=== PATIENT | female | born 1990 | race Caucasian/White ===

== ENCOUNTER 2017-07-09 20:37 | Outpatient (CLI) | payer OTHER | END 2017-07-09 20:38 | disposition critical access hospital (66) | LOC: EMS 20:37 | PROVIDERS: ATTEND Surgery | DX: S99.922A Unspecified injury of left foot, initial encounter (principal); Y93.75 Activity, martial arts | CPT/HCPCS: A0425; A0427 ==

== ENCOUNTER 2017-07-09 20:56 | Emergency (ER) | payer OTHER ==
[2017-07-09] MEDS ORDERED: ONDANSETRON ODT 4 MG TABLET TL STA (21:01)
[2017-07-09] MEDS ORDERED: LIDOCAINE 1% 2 ML VIAL SUBQ STA (21:02)
[2017-07-09] MEDS ORDERED: BUPIVACAINE 0.5% PF 30 ML VIAL SUBQ STA (21:02)
--- NOTE | 2017-07-09 21:03 | ED Physician Documentation ---
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 given fentanyl by medics en route with relief of pain Review of Systems Musculoskeletal: reports: Extremity pain (left fourth toe) Neurologic: denies: Focal weakness, Numbness PD PAST MEDICAL HISTORY - Past Medical History Past Medical History: No - Allergies Allergies/Adverse Reactions: Allergies Allergy/AdvReac Type Severity Reaction Status Date / Time Penicillins Allergy Anaphylaxis Verified 07/09/17 21:08 - Living Situation Living Arrangement: reports: At home PD ED PE NORMAL - Vitals Vital signs reviewed: Yes - General General: Alert and oriented X 3, No acute distress, Well developed/nourished - Neuro Neuro: No sensory deficit PD ED PE EXPANDED - Extremities Extremities: Deformity (left fourth toe), Tenderness. No: Abrasion, Laceration Results - Vitals Vitals: Vital Signs - 24 hr 07/09/17 21:05 Temperature 36.7 C Heart Rate 93 Respiratory 16 Rate Blood Pressure 135/88 H O2 Saturation 100 Oxygen O2 Source Room air - Rads (name of study) left toes xrays Radiology: Prelim report reviewed, See rad report Procedures - Regional nerve block Nerve block site: Digital - note digit(s) (left fourth toe) Right / left: Left Nerve block anesthesia: Lidocaine 1%, Marcaine 0.5% Nerve block aftercare: Excellent anesthesia, Patient tolerated well, No complications PD MEDICAL DECISION MAKING - ED course Complexity details: reviewed results, re-evaluated patient, considered differential, d/w patient ED course: subsequent to return from xray, patient experienced gradually worsening pain; this was relieved with digital block. With gentle traction, the toe was then reduced quite easily. Excellent alignment and brisk capillary refill in tip of toe. Departure - Departure Disposition: 01 Home, Self Care Clinical Impression: Toe joint dislocation Qualifiers: Encounter type: initial encounter Laterality: left Qualified Code(s): S93.105A - Unspecified dislocation of left toe(s), initial encounter Condition: Good Instructions: ED Dislocation Toe Discharge Date/Time: 07/09/17 22:59
[2017-07-09 21:07] VITALS: BP 135/88
[2017-07-09] MEDS ORDERED: BUPIVACAINE 0.5% PF 10 ML VIAL ONE (21:34)
--- NOTE | 2017-07-09 22:08 | XRAY Preliminary Report ---
Exam: XR TOE(S) LT IMPRESSION: 1. Medial dislocation and angulation of the middle phalanx of the fourth toe with respect to the prox imal phalanx. [facility] SITE ID: [id number]
--- NOTE | 2017-07-09 22:09 | XRAY Report ---
EXAM: LEFT TOE RADIOGRAPHY EXAM DATE: 07/09/2017 09:34 PM. CLINICAL HISTORY: Injury, obvious deformity. COMPARISON: None. TECHNIQUE: 3 views. FINDINGS: Bones: No fracture seen. Joints: Dislocation at the PIP joint of the fourth toe. Medial dislocation and angulation of the midd le phalanx with respect to the proximal phalanx. Soft Tissues: Mild soft tissue swelling. IMPRESSION: 1. Medial dislocation and angulation of the middle phalanx of the fourth toe with respect to the prox imal phalanx. [facility] Referring Provider Line: [phone] SITE ID: [id number]
[2017-07-09] MEDS ORDERED: HYDROcod/ACET 5/325 Prepack 4 PO STA (22:42)
[2017-07-09] MEDS ORDERED: IBUPROFEN 600 MG TABLET PO STA (22:42)
== END 2017-07-09 22:59 | disposition home or self-care (01) ==
LOC: ED 20:56
DX: S93.115A Dislocation of interphalangeal joint of left lesser toe(s), initial encounter (principal); W18.30XA Fall on same level, unspecified, initial encounter; W22.09XA Striking against other stationary object, initial encounter; Y93.75 Activity, martial arts
CPT/HCPCS: 28660; 73660; 96372; 99283; A9270; Q0162

== ENCOUNTER 2018-05-19 17:40 | Outpatient (CLI) | payer OTHER ==
[2018-05-19 17:56] VITALS: BP 113/75
[2018-05-19 18:19] LABS: RUPTURE OF MEMBRANES PLUS NEGATIVE (NEGATIVE)
--- NOTE | 2018-05-19 19:28 | HISTORY & PHYSICAL EXAMINATION ---
DATE OF SERVICE: 05/19/2018 Physician: Marco Tariq MD IDENTIFICATION: Patient is a 27 year old. She is 8, para 2. She is 32.6 weeks. CHIEF COMPLAINT: Vaginal fluid. HISTORY OF PRESENT ILLNESS: Patient states that at roughly 1513 today she developed a gush of fluid from the vagina. She checked to make sure that this was not urine and did not believe it so as she was able to void. She put a pad on and noted some continued wetness. She presents with some pelvic pressure and some sharp pain, but no regular contractions. PAST MEDICAL HISTORY: Unremarkable. PAST SURGICAL HISTORY: section x2 as well as a hysteroscopy. OB HISTORY: Positive for multiple miscarriages. Her first section was performed for what appears to be an abruption. ALLERGIES: PENICILLIN WHICH CAUSES ANAPHYLAXIS. CURRENT MEDICATIONS: vitamins and Tylenol. HABITS: Patient denies use of alcohol, tobacco, street or addictive drugs or THC. 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 STUDIES: Laboratories show her to be O-positive. Her 50-gram Glucola was 127. She is rubella immune. PHYSICAL EXAMINATION GENERAL: Patient is a well-developed, well-nourished female. She is mildly anxious about the potential of premature rupture of membranes. HEENT: Pupils are equal and round. Extraocular muscles are intact. HEART: Regular rate and rhythm without murmurs. LUNGS: Perdue are clear without rales or wheezes. ABDOMEN: Soft, nontender. PELVIC: Uterus palpates at roughly 33-34 cm. Speculum examination shows an empty vaginal vault without evidence of any pooling fluid. Q-tip was taken and is negative for nitrazine as well as ferning. An FFN has been obtained, as well as a ROM Plus. Pelvic examination shows a cervix which is closed, long, and the presenting part is high out of the pelvis. NST shows reactive strip without evidence of any regular contractions. IMPRESSION 1. 32 weeks 6 days. 2. It appears as though she has not ruptured at this time. Await the ROM Plus test; however, if this is positive, I would be somewhat suspicious, as the other tests have all been negative. We will await the FFN. In view of the fact her cervix is long and closed, and she is not exhibiting any contractions, I do not believe she is in labor. She has no evidence of any bleeding, thus possibility of an abruption is low. Addendum - her ROM Plus is negative. TD: 05/19/2018 18:35 MTDD
== END 2018-05-19 18:45 | disposition home or self-care (01) ==
LOC: WFO 17:40 → FBP 17:46 → WFO 18:45
PROVIDERS: ATTEND Obstetrics & Gynecology
DX: O26.893 Other specified pregnancy related conditions, third trimester (principal); N89.8 Other specified noninflammatory disorders of vagina; Z3A.32 32 weeks gestation of pregnancy
CPT/HCPCS: 82731; 84112; 99213

== ENCOUNTER 2020-01-23 16:52 | Outpatient (CLI) | payer OTHER | END 2020-01-23 16:53 | disposition critical access hospital (66) | LOC: EMS 16:52 | PROVIDERS: ATTEND Surgery | DX: R10.9 Unspecified abdominal pain (principal); R11.0 Nausea | CPT/HCPCS: A0425; A0427 ==

== ENCOUNTER 2020-01-23 17:07 | Emergency (ER) | payer OTHER ==
[2020-01-23] MEDS ORDERED: KETOROLAC 30 MG/ML VIAL IVP STA (17:12)
[2020-01-23] MEDS ORDERED: HYDROmorphone 1 MG/ML CARPUJECT IVP STA (17:12)
--- NOTE | 2020-01-23 17:15 | ED Physician Documentation ---
PD HPI ABD PAIN - Stated complaint Stated Complaint: RLQ PAIN - History obtained from History obtained from: Patient, EMS - Additional information Additional information: Gradual onset RLQ pain today. Feels similar to, but worse than prior ovarian cyst. She is midcycle, LMP 2 weeks ago. [place] shx oftubal ligation and c/s x3. No fevers. Was nauseous, but got zofran en route with improvement. Review of Systems Ten Systems: 10 systems reviewed and negative Constitutional: denies: Fever, Chills Cardiac: reports: Reviewed and negative Respiratory: reports: Reviewed and negative GI: reports: Abdominal Pain, Nausea, Reviewed and negative. 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 COACH: section - Present Medications Home Medications: Ambulatory Orders Medication Instructions Recorded Confirmed Oxycodone HCl/Acetaminophen 1 - 2 each PO Q6H PRN #10 tablet 01/23/20 [Percocet 5-325 mg Tablet] - Allergies Allergies/Adverse Reactions: Allergies Allergy/AdvReac Type Severity Reaction Status Date / Time Penicillins Allergy Anaphylaxis Verified 01/23/20 17:12 - Social History Does the pt smoke?: No Smoking Status: Never smoker Does the pt drink ETOH?: No Does the pt have substance abuse?: No - Immunizations Immunizations are current?: Yes PD ED PE NORMAL - Vitals Vital signs reviewed: Yes - General General: Alert and oriented X 3, Other (uncomfortable) - HEENT HEENT: PERRL, EOMI - Neck Neck: Supple, no meningeal sign, No bony TTP - Cardiac Cardiac: RRR, No murmur - Respiratory Respiratory: No respiratory distress, Clear bilaterally - Abdomen Abdomen: Normal bowel sounds, Soft, Non tender - Back Back: No CVA TTP, No spinal TTP - Derm Derm: Normal color, Warm and dry - Extremities Extremities: No edema, No calf tenderness / cord - Neuro Neuro: Alert and oriented X 3, Normal speech Results - Vitals Vitals: Vital Signs - 24 hr 01/23/20 01/23/20 01/23/20 17:12 17:21 18:35 Temperature 36.5 C 36.5 C 36.5 C Heart Rate 88 88 81 Respiratory 16 16 16 Rate Blood Pressure 147/100 H 147/100 H 133/80 H O2 Saturation 100 100 100 10/12/20 10/12/20 19:27 19:49 Temperature 36.5 C 36.5 C Heart Rate 79 79 Respiratory 16 16 Rate Blood Pressure 118/70 118/70 O2 Saturation 100 100 Oxygen O2 Source Room air - Labs Labs: Laboratory Tests 01/23/20 01/23/20 01/23/20 17:47 17:47 18:01 WBC 7.0 RBC 4.48 Hgb 12.1 Hct 37.5 MCV 83.7 MCH 27.0 MCHC 32.3 RDW 13.1 Plt Count 193 MPV 10.2 Neut # (Auto) 5.0 Lymph # (Auto) 1.4 L [place] # (Auto) 0.4 Eos # (Auto) 0.1 Baso # (Auto) 0.0 Absolute Nucleated RBC 0.00 Nucleated RBC % 0.0 Sodium 138 Potassium 3.9 Chloride 105 Carbon Dioxide 23 Anion Gap 10.0 BUN 14 Creatinine 0.8 Estimated GFR (MDRD) 86 L Glucose 101 H Calcium 9.2 Total Bilirubin 0.3 AST 24 ALT 26 Alkaline Phosphatase 50 Total Protein 6.9 Albumin 4.0 Globulin 2.9 Albumin/Globulin Ratio 1.4 Lipase 27 Urine Color YELLOW Urine Clarity CLEAR Urine pH 5.0 Ur Specific [place] 1.025 Urine Protein NEGATIVE Urine Glucose (UA) NEGATIVE Urine Ketones NEGATIVE Urine Occult Blood NEGATIVE Urine Nitrite NEGATIVE Urine Bilirubin NEGATIVE Urine Urobilinogen 0.2 (NORMAL) Ur Leukocyte Esterase NEGATIVE Ur Microscopic Review NOT INDICATED Urine Culture Comments NOT INDICATED Urine HCG, Qual NEGATIVE - Rads (name of study) Pelvic sono Radiology: EMP read contemporaneously (neg) PD MEDICAL DECISION MAKING - ED course ED course: 29-year-old woman midcycle presents with pelvic and right sided abdominal pain. She is not tender, so doubt appendicitis. White count also is mid normal making appendicitis very unlikely. Ultrasound showing uterine contraction and follicles. Close follow-up was advised. As were return precautions. Departure - Departure Disposition: 01 Home, Self Care Clinical Impression: Pelvic pain Condition: Good Record reviewed to determine appropriate education?: Yes Instructions: ED Pelvic Pain [facility] Prescriptions: Oxycodone HCl/Acetaminophen [Percocet 5-325 mg Tablet] 1 - 2 each PO Q6H PRN #10 tablet PRN Reason: pain Comments: Return anytime if worsening, in 24 hours if not better. [place] Discharge Date/Time: 01/23/20 19:54
[2020-01-23 17:58] LABS: BASOPHILS % (AUTO) 0.4 %; EOSINOPHILS # (AUTO) 0.1 10^3/uL (0.0-0.7); EOSINOPHILS % (AUTO) 1.6 %; HGB - HEMOGLOBIN 12.1 g/dL (12.0-16.0); LYMPHOCYTES # (AUTO) 1.4 10^3/uL (1.5-3.5); LYMPHOCYTES % (AUTO) 20.5 %; MEAN CORPUSCULAR HGB CONC 32.3 g/dL (32.0-36.0); MEAN CORPUSCULAR VOLUME 83.7 fL (81.0-99.0); MEAN PLATELET VOLUME 10.2 fL (7.9-10.8); MONOCYTES # (AUTO) 0.4 10^3/uL (0.0-1.0); MONOCYTES % (AUTO) 5.9 %; NEUTROPHILS % (AUTO) 70.7 %; PLT - PLATELET COUNT 193 10^3/uL (130-450); RED BLOOD COUNT 4.48 10^6/uL (4.20-5.40); RED CELL DISTRIBUTION WIDTH 13.1 % (12.0-15.0)
[2020-01-23 18:09] LABS: ALBUMIN/GLOBULIN RATIO 1.4 (1.0-2.2); BILIRUBIN,TOTAL 0.3 mg/dL (0.2-1.0); CALCIUM 9.2 mg/dL (8.5-10.3); CREATININE 0.8 mg/dL (0.4-1.0); TOTAL PROTEIN 6.9 g/dL (6.7-8.2)
[2020-01-23 18:24] LABS: BILIRUBIN,URINE NEGATIVE (NEGATIVE); GLUCOSE, URINE (UA) NEGATIVE (NEGATIVE); KETONES,URINE (UA) NEGATIVE (NEGATIVE); LEUKOCYTE ESTERASE, URINE NEGATIVE (NEGATIVE); NITRITE,URINE NEGATIVE (NEGATIVE); OCCULT BLOOD,URINE NEGATIVE (NEGATIVE); PROTEIN,URINE NEGATIVE (NEGATIVE); UROBILINOGEN,URINE 0.2 (NORMAL) E.U./dL (NORMAL)
[2020-01-23 18:39] LABS: CLARITY,URINE CLEAR (CLEAR); HCG UR QUAL NEGATIVE
[2020-01-23 19:27] VITALS: BP 118/70
[2020-01-23] MEDS ORDERED: oxyCODONE/ACET 5/325 Prepack 4 PO STA (19:37)
--- NOTE | 2020-01-23 20:00 | Ultrasound Report ---
PROCEDURE: Pelvic w/Transvag+Doppler Comp INDICATIONS: Right-sided pelvic pain TECHNIQUE: Real-time scanning was performed of the pelvic organs, with image documentation. Additional endovagi nal scanning was necessary due to incomplete visualization of the adnexal and endometrial structures by transabdominal scanning. COMPARISON: None. FINDINGS: Transabdominal scanning: Limited scanning through the kidneys shows no hydronephrosis. No pathologi c free abdominal or pelvic fluid. Endovaginal scanning: Normal size and appearance of the uterus. No uterine mass. Scant volume of anechoic fluid in the uter ine cavity is within physiologic normal limits. The endometrium is normal in thickness. Both ovaries are normal in size and appearance with normal arterial and venous blood flow Doppler sig nal. No ovarian or adnexal mass. Small follicles are present in both ovaries. IMPRESSION: Normal pelvic ultrasound. Reviewed by: Tito Lion MD on 01/23/2020 7:58 PM PDT Approved by: Tito Lion MD on 01/23/2020 7:58 PM PDT Station ID: [id number]
== END 2020-01-23 19:54 | disposition home or self-care (01) ==
LOC: EDUNIT# → ED 17:07
DX: R10.2 Pelvic and perineal pain (principal); R10.31 Right lower quadrant pain; R11.0 Nausea
CPT/HCPCS: 36415; 76830; 76856; 80053; 81003; 81025; 83690; 85025; 93975; 96374; 99284; J1170; 81001; 87086